=== PATIENT | female | born 1970 | race Caucasian/White ===

== ENCOUNTER 2021-03-14 08:14 | Outpatient (CLI) | payer OTHER | END 2021-03-14 08:30 | disposition home or self-care (01) | LOC: SONOGRAMA 08:14 → MAMO-SONO 08:15 → SONOGRAMA 08:30 | PROVIDERS: ATTEND Neuromusculoskeletal Medicine, Sports Medicine | DX: R10.84 Generalized abdominal pain (principal); E04.1 Nontoxic single thyroid nodule ==

== ENCOUNTER 2021-05-12 13:40 | Outpatient (CLI) | payer OTHER | END 2021-05-12 13:51 | disposition home or self-care (01) | LOC: RAD 13:40 | PROVIDERS: ATTEND Specialist | DX: R07.89 Other chest pain (principal) ==

== ENCOUNTER 2021-07-21 13:03 | Outpatient (CLI) | payer OTHER | END 2021-07-21 13:16 | disposition home or self-care (01) | LOC: MAMO-SONO 13:03 | PROVIDERS: ATTEND Specialist | DX: R92.1 Mammographic calcification found on diagnostic imaging of breast (principal); Z12.31 Encounter for screening mammogram for malignant neoplasm of breast ==

== ENCOUNTER 2022-01-13 12:39 | Outpatient (CLI) | payer OTHER | END 2022-01-13 12:49 | disposition home or self-care (01) | LOC: SONOGRAMA 12:39 | PROVIDERS: ATTEND Internal Medicine Endocrinology, Diabetes & Metabolism | DX: E04.1 Nontoxic single thyroid nodule (principal) ==

== ENCOUNTER 2022-02-25 13:51 | Outpatient (CLI) | payer OTHER | END 2022-02-25 14:06 | disposition home or self-care (01) | LOC: RAD 13:51 | DX: M54.50 Low back pain, unspecified (principal) ==

== ENCOUNTER 2022-06-19 14:22 | Outpatient (CLI) | payer OTHER | END 2022-06-19 14:24 | disposition home or self-care (01) | LOC: RAD 14:22 | PROVIDERS: ATTEND Internal Medicine Gastroenterology | DX: S99.921A Unspecified injury of right foot, initial encounter (principal) ==

== ENCOUNTER 2023-07-08 08:10 | Outpatient (CLI) | payer OTHER | END 2023-07-08 08:36 | disposition home or self-care (01) | LOC: MAMO-SONO 08:10 | PROVIDERS: ATTEND Internal Medicine Endocrinology, Diabetes & Metabolism | DX: Z12.31 Encounter for screening mammogram for malignant neoplasm of breast (principal); R74.01 Elevation of levels of liver transaminase levels; R74.8 Abnormal levels of other serum enzymes ==

== ENCOUNTER 2024-07-12 13:19 | Outpatient (CLI) | payer OTHER | END 2024-07-12 13:28 | disposition home or self-care (01) | LOC: MAMO-SONO 13:19 | PROVIDERS: ATTEND Surgery | DX: N60.11 Diffuse cystic mastopathy of right breast (principal); N60.12 Diffuse cystic mastopathy of left breast ==